=== PATIENT | female | born 1970 | race Caucasian/White ===

== ENCOUNTER 2023-01-24 19:15 | Emergency (ER) | payer OTHER, SELFPAY ==
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
--- NOTE | ~2023-01-24 | CT_ITS ---
EXAMINATION: CT brain wo con DATE: 01/24/2023 20:14 INDICATION: head injury . TECHNIQUE: Computed tomography (CT) of the head was performed with intravenous contrast. The mA was a djusted according to patient size. Iterative reconstruction technique was employed. The dose-length p roduct was 605.33 mGy-cm. COMPARISON: None. FINDINGS: Small volume subarachnoid hemorrhage and deep sulcus of the right parietal lobe. No acute extra-axial fluid collection. No hydrocephalus, mass, or herniation. No acute ischemic infarct. Unremarkable dural venous sinus attenuation. No acute osseous abnormality. The aerated spaces are clear. IMPRESSION: Small volume subarachnoid hemorrhage in a right parietal sulcus. No other acute intracranial process detected. Results reported telephonically to Dr. Gonzalez by Dr. Kapoor at 8:23 PM on 01/24/2023. Reviewed, dictated and finalized at location K. IMPRESSION: Small volume subarachnoid hemorrhage in a right parietal sulcus. No other acute intracranial process detected. Results reported telephonically to Dr. Gonzalez by Dr. Kapoor at 8:23 PM on 12/27.
--- NOTE | ~2023-01-24 | CT_ITS ---
EXAMINATION: CT cervical spine wo con DATE: 01/24/2023 20:16 INDICATION: neck pain TECHNIQUE: Computed tomography (CT) of the cervical spine was performed without intravenous contrast. Automated exposure control and iterative reconstruction technique were employed. The dose-length pro duct was 446.04 mGy-cm. COMPARISON: None. FINDINGS: Vertebral Body Alignment: Intact. Reversal of the normal cervical lordosis centered at C5-6. Craniocervical and atlantoaxial alignment: Moderate degenerative change. Alignment intact. Osseous structures/fracture: No evidence of a lytic or blastic process in the visualized spine. No e vidence of acute fracture. Trace left mastoid fluid, without evidence of temporal bone fracture or er osion. Cervical soft tissues: The paraspinal soft tissues planes are maintained. Mild biapical pleural scarr ing. Degenerative changes: Multilevel degenerative disc disease and facet arthropathy. Severe bilateral ne ural foraminal narrowing at C6-7. Severe left neural foraminal narrowing at C5-6. Moderate-severe ken tral canal narrowing at C5-6. IMPRESSION: No acute fracture or traumatic malalignment in the cervical spine. Reviewed, dictated and finalized at location K.
[2023-01-24 19:22] VITALS: BP 166/95; PULSE 102; RESP 16; TEMP 36.8; O2SAT 98
--- NOTE | 2023-01-24 19:43 | PC.NURSE ---
194-DUE TO C/O POSTERIOR NECK PAIN WITH INCREASED PAIN WITH MOVEMENT OF NECK, C-COLLAR APPLIED.
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
[2023-01-24 20:47] VITALS: BP 155/92; PULSE 98; RESP 20; O2SAT 96
[2023-01-24 20:48] VITALS: PULSE 98
--- NOTE | 2023-01-24 21:13 | PC.NURSE ---
2109-REPORT CALLED TO KIMBERLY MEDRANO AT [facility] ER.
[2023-01-24 22:11] LABS: Basophils Absolute Auto 0.1 K/mm3 (0.0-0.1); Basophils Percent Auto 0.8 % (0.2-1.2); Eosinophils Absolute Auto 0.2 K/mm3 (0-0.3); Eosinophils Percent Auto 1.6 % (0-4.4); Hematocrit 46.5 % (37.0-47.0); Hemoglobin 15.7 g/dL (12.0-15.0); Immature Granulocyte Absolute 0.05 K/mm3 (0.00-0.031); Immature Granulocyte Percent A 0.4 % (0-0.5); Lymphocytes Absolute Auto 2.48 K/mm3 (0.9-3.2); Lymphocytes Percent Auto 22.2 % (18.3-44.2); Mean Corpuscular HGB Conc 33.8 g/dl (32-36); Mean Corpuscular Hemoglobin 29.4 pg (26-34); Mean Corpuscular Volume 87.1 fl (80-100); Mean Platelet Volume 11.5 fl (7.4-10.4); Monocytes Absolute Auto 0.8 K/mm3 (0.1-0.6); Neutrophils Absolute Auto 7.6 K/mm3 (1.3-6.7); Platelet Count Result 195 k/mm3 (150-375); Red Blood Count 5.34 M/mm3 (4.2-5.4); Red Cell Distribution Width 13.1 % (11.5-14.5); White Blood Count 11.2 K/mm3 (4.5-10.0)
[2023-01-24 22:21] LABS: INR 0.9; Prothrombin Time 12.7 Seconds (11.1-14.7)
[2023-01-24 22:23] LABS: Partial Thromboplastin Time 27.9 SECONDS (22.3-36.8)
[2023-01-24 23:11] LABS: Alanine Aminotransferase 29 U/L (6-35); Albumin Level 4.4 g/dL (3.5-5.1); Alkaline Phosphatase 93 U/L (38-126); Anion Gap 6 mmol/L (8-16); Aspartate Amino Transferase 32 U/L (14-36); Bilirubin,Total 0.7 mg/dL (0.2-1.3); Blood Urea Nitrogen 25 mg/dL (7-17); Calcium 9.5 mg/dL (8.4-10.2); Carbon Dioxide 27 mmol/L (22-30); Chloride 103 mmol/L (98-107); Estimated CRCL calculation 108 ml/min; Estimated Glomerular Filt Rate > 60; Glucose 285 mg/dL (65-110); Potassium 4.3 mmol/L (3.4-5.0); Sodium 136 mmol/L (137-145)
== END 2023-01-24 21:41 | disposition short-term general hospital (02) ==
PROVIDERS: Emergency Provider Emergency Medicine; PCP Family Medicine Sports Medicine
DX: S06.6XAA Traumatic subarachnoid hemorrhage with loss of consciousness status unknown, initial encounter (principal); S19.9XXA Unspecified injury of neck, initial encounter; S69.92XA Unspecified injury of left wrist, hand and finger(s), initial encounter; I10 Essential (primary) hypertension; E11.9 Type 2 diabetes mellitus without complications; Z79.82 Long term (current) use of aspirin; V49.40XA Driver injured in collision with unspecified motor vehicles in traffic accident, initial encounter
CPT/HCPCS: 36415; 70450; 72125; 73110; 73130; 80053; 85025; 85610; 85730; 99285; L0140